=== PATIENT | female | born 1975 | race Caucasian/White ===

== ENCOUNTER 2022-03-15 12:13 | Emergency (ER) | payer BC, SELFPAY ==
[2022-03-15 13:01] VITALS: BP 161/94; PULSE 77; RESP 16; TEMP 36.7; O2SAT 96; BMI 50.9
--- NOTE | 2022-03-15 13:22 | W.ED.BACK ---
HPI - Back Pain/Injury General: Chief Complaint: Back Pain/Injury Stated Complaint: fall Time Seen by Provider: 03/15/22 13:14 Source: patient Mode of arrival: ambulatory Limitations: no limitations History of Present Illness: Patient is a 46-year-old female presents to ED today for Worker's Comp. injury. Patient states she was at her place of employment/school when she tripped and fell over a slip and fall mat. Patient states she heard several pops to her lower back. Patient states she did not fall directly onto her back and heard the pops while she twisted going down. She states she possibly twisted her right ankle and landed on her right shoulder although she does not complain of much pain or tenderness here and has full range of motion of these areas. She states she is here mainly because of her back. Patient denies any numbness, tingling, loss of sensation of her lower extremities. MD elicited complaint: back pain Pertinent past history: prior back pain Onset (ago): hour(s) Timing: constant Severity: moderate Similar Symptoms Previously: No Location: lumbar spine Radiation: none Exacerbating factors: movement Relieving factors: immobilization Context: turning/twisting Associated symptoms: Reports no associated symptoms; Deny abdominal pain, chills, fatigue or fever(s) Work related injury: Yes Review of Systems Const: Denies: fever(s), chills, body aches, fatigue or malaise Card: Denies: chest pain Resp: Denies: dyspnea GI: Denies: abdominal pain Musc: Reports: back pain; Denies: neck pain, extremity pain, extremity swelling, joint pain or joint swelling Skin/Breast: Denies: rash Neuro: Denies: headache(s), numbness in extremities, weakness in extremities or sensory changes Physical Exam Const: COMMON NORMALS: no acute distress, patient oriented x3, no limitations and alert GENERAL APPEARANCE: cooperative NUTRITIONAL APPEARANCE: obese ORIENTATION/CONSCIOUSNESS: Yes awake, Yes oriented to person, Yes oriented to place and Yes oriented to time HENMT: COMMON NORMALS: normocephalic and atraumatic HEAD & SCALP: normal to inspection, normocephalic and atraumatic Neck/C-Spine: COMMON NORMALS: full ROM CERVICAL SPINE: Yes cervical ROM normal, No pain with cervical ROM, No Cervical spine tenderness, No step off deformity and No Paracervical muscle tenderness Back/Pelvis: THORACIC SPINE/UPPER BACK: Yes normal to inspection, Yes thoracic ROM normal, No thoracic spinal tenderness, No paraspinal muscle tenderness and No paraspinal muscle spasm LUMBAR SPINE/LOWER BACK: Yes pain with ROM, Yes lumbar spinal tenderness, Yes paraspinal muscle tenderness (across lower back), No paraspinal muscle spasm and Yes straight leg raise negative bilaterally PELVIS: Yes buttocks normal SACROILIAC JOINTS: Yes SI joints normal SACRUM: no tenderness COCCYX: no tenderness Extremity: COMMON NORMALS: normal to inspection and full ROM NARRATIVE EXTREMITY EXAM: full painless ROM to R ankle/shoulder GENERAL: Yes normal exam except as noted Neuro: GLADYS COMA SCALE: document [facility] findings [place] coma scale eye opening: Spontaneous Gladys coma scale verbal response: Orientated Gladys coma scale motor response: Obey commands Gladys coma scale total score: 15 COMMON NORMALS: patient oriented x3, moves all extremities, no focal motor deficits, no sensory deficits noted and gait normal SENSORIUM/ORIENTATION: Yes alert, Yes oriented to person, Yes oriented to place and Yes oriented to time Skin: TRAUMA: no lacerations or abrasions Course Vital Signs: Vital signs: Vital Signs Temperature 98.1 F 03/15/22 13:01 Pulse Rate 77 03/15/22 13:01 Respiratory Rate 16 03/15/22 13:01 Blood Pressure 161/94 03/15/22 13:01 Pulse Oximetry 96 03/15/22 13:01 Oxygen Delivery Me thod 03/15/22 13:01 MDM - Back Pain/Injury Medical Decision Making Prelim XR negative. Will place patient on NSAIDS, muscle relaxers, steroids and have her follow-up with Worker's Comp as directed. She did not require drug or alcohol testing today. Discharge Plan Discharge Patient Disposition: Home Clinical Impression: Low back strain Qualifiers: Encounter type: initial encounter Qualified Code(s): S39.012A - Strain of muscle, fascia and tendon of lower back, initial encounter Condition: Stable Prescriptions: New cyclobenzaprine 10 mg tablet 10 mg PO TID Qty: 14 0RF ibuprofen 800 mg tablet 800 mg PO Q8H PRN (Reason: pain) Qty: 20 0RF Medrol (Misael) 4 mg tablets,dose pack See Rx Instructions .ROUTE .COMPLEX Qty: 21 0RF Rx Instructions: orally per package directions Discharge Orders: Discharge ED (Routine); Ordered 03/15/22 Ordered By: Betty Webster Activity Restrictions/Additional Instructions: FOLLOW UP WITH WORKER'S COMP DIRECTED. Coding Level of Care Code ED Objects Conservator for Chg Fwd Exam Detailed
--- NOTE | 2022-03-15 13:26 | XRR_ITS ---
PROCEDURE INFORMATION: Exam: XR Lumbosacral Spine Exam date and time: 03/15/2022 2:05 PM Age: 46 years old Clinical indication: Injury or trauma; Fall; Blunt trauma (contusions or hematomas); Injury date: 03/15/22; Prior surgery; Surgery type: C section; Additional info: Trip/back pain/injury TECHNIQUE: Imaging protocol: Radiologic exam of the lumbosacral spine. Views: 2 or 3 views. COMPARISON: No relevant prior studies available. FINDINGS: Bones/joints: Moderate L3-S1 degenerative change with loss of disc space and osteophyte formation. No fracture noted. Soft tissues: Unremarkable. XR/XR lumbar spine 2-3V* [id number] IMPRESSION: 1. Moderate L3-S1 degenerative change, advanced for age. 2. No definite fracture noted. If pain persists and/or there is strong concern for fracture clinically, CT may be helpful.
[2022-03-15 15:18] VITALS: BP 145/86; PULSE 79; RESP 16; TEMP 37.2; O2SAT 97
== END 2022-03-15 15:13 | disposition home or self-care (01) ==
PROVIDERS: Emergency Provider Physician Assistant
DX: S39.012A Strain of muscle, fascia and tendon of lower back, initial encounter (principal); W18.09XA Striking against other object with subsequent fall, initial encounter; Y99.0 Civilian activity done for income or pay
CPT/HCPCS: 72100; 99283